=== PATIENT | female | born 1955 | race Caucasian/White ===

== ENCOUNTER 2018-10-20 18:00 | Emergency (ER) | payer BC ==
[2018-10-20 18:35] VITALS: BP 144/89
--- NOTE | 2018-10-20 19:56 | UC ---
UC General HPI - HPI Summary HPI Summary: pt is c/o lower abdominal pain with bloating and some loss of appetite since last pm. no vomiting, diarrhea or dysuria. last colonoscopy was 05/16, diverticulosis was seen. - History of Current Complaint Chief Complaint: UCAbdominalPain Stated Complaint: LOWER LT ABD PAIN Time Seen by Provider: 10/20/18 19:48 Hx Obtained From: Patient Onset/Duration: Gradual Onset Timing: Constant Pain Intensity: 4 Aggravating: movement Associated Signs & Symptoms: Positive: Abdominal Pain - Allergy/Home Medications Allergies/Adverse Reactions: Allergies Allergy/AdvReac Type Severity Reaction Status Date / Time Penicillins Allergy Mild Rash Verified 10/20/18 18:35 latex Allergy Unknown Verified 10/20/18 18:35 Reaction Details cashews Allergy Unknown Uncoded 10/20/18 18:35 Reaction Details Home Medications: Home Medications Calcium Carbonate [Calcium] 500 mg PO DAILY 10/20/18 [History Confirmed 10/20/18 ] L.acidoph,Paracasei, B.lactis [Probiotic] 1 each PO DAILY 10/20/18 [History Confirmed 10/20/18] PMH/Surg Hx/FS Hx/Imm Hx Previously Healthy: Yes - Surgical History Surgical History: Yes Surgery Procedure, Year, and Place: lt knee 4 years ago - Family History Known Family History: Positive: Non-Contributory - Social History Lives: With Family Alcohol Use: Occasionally Substance Use Type: None Smoking Status (MU): Never Smoked Tobacco Review of Systems All Other Systems Reviewed And Are Negative: Yes Constitutional: Positive: Fever - here Gastrointestinal: Positive: Abdominal Pain Genitourinary: Negative: Dysuria Physical Exam Triage Information Reviewed: Yes Appearance: Well-Appearing Vital Signs: Initial Vital Signs Temp 101.3 F 10/20/18 18:25 Pulse 95 10/20/18 18:25 Resp 18 10/20/18 18:25 BP 144/89 10/20/18 18:25 Pulse Ox 99 10/20/18 18:25 Vital Signs Reviewed: Yes Eyes: Positive: Conjunctiva Clear ENT: Positive: Normal ENT inspection Neck: Positive: Supple Respiratory: Positive: Lungs clear, Normal breath sounds Cardiovascular: Positive: RRR, No Murmur Abdomen Description: Positive: Other: - Flat. Tender across L side and lower abdomen. no mass, no HSM or CVA tendernss. No pulsatile mass. Bowel Sounds: Positive: Hyperactive Musculoskeletal: Positive: ROM Intact Neurological: Positive: Alert Psychological: Positive: Age Appropriate Behavior Skin Exam: Normal Course/Dx - Course Course Of Treatment: [facility], [place] called, report given to Baldev Williamson NP. I advised of abdominal pain and fever of 101.3. - Differential Dx - Multi-Symptom Differential Diagnoses: Other - most likely diverticulosis. - Diagnoses Provider Diagnosis: Lower abdominal pain, Left sided abdominal pain, Fever Discharge - Sign-Out/Discharge Documenting (check all that apply): Patient Departure All imaging exams completed and their final reports reviewed: No Studies - Discharge Plan Condition: Stable Disposition: TRANS HIGHER LVL OF CARE FAC Referrals: Franchesca Rodriguez MD [Primary Care Provider] - Additional Instructions: leave here and go directly to the [facility] as discussed. do not eat or drink. - Billing Disposition and Condition Condition: STABLE Disposition: Trans Higher Lvl of Care Fac
== END 2018-10-20 20:03 | disposition short-term general hospital (02) ==
LOC: UCCORT 18:00
DX: R10.30 Lower abdominal pain, unspecified (principal); R50.9 Fever, unspecified; Z88.0 Allergy status to penicillin; Z91.040 Latex allergy status; Z91.018 Allergy to other foods
CPT/HCPCS: 81003; 87086; 99211; G0463